=== PATIENT | male | born 1955 | race Caucasian/White ===

== ENCOUNTER 2018-05-07 08:52 | Emergency (ER) | payer OTHER ==
--- NOTE | 2018-05-07 10:01 | UC ---
Eye Complaint HPI - HPI Summary HPI Summary: The patient is a 62-year-old male with a 2 day history of redness in his left eye. No pain or visual problems are noted. He has no discharge from his eye. There is no itchiness of the eye. He states that he had been doing some heavy lifting around the house before he noted this. - History of Current Complaint Chief Complaint: UCEye Stated Complaint: EYE ISSUE Time Seen by Provider: 05/07/18 09:56 Hx Obtained From: Patient Onset/Duration: Gradual Onset, Lasting Days Timing: Constant Severity Initially: Mild Severity Currently: Mild Pain Intensity: 0 Pain Scale Used: 0-10 Numeric Location of Injury: Conjunctiva Alleviating Factor(s): Nothing Associated Signs And Symptoms: Positive: Negative - Allergies/Home Medications Allergies/Adverse Reactions: Allergies Allergy/AdvReac Type Severity Reaction Status Date / Time No Known Allergies Allergy Verified 05/07/18 09:08 Home Medications: Home Medications NK [No Home Medications Reported] 05/07/18 [History Confirmed 05/07/18] PMH/Surg Hx/FS Hx/Imm Hx Previously Healthy: Yes - Surgical History Surgical History: Yes Surgery Procedure, Year, and Place: hernia - Family History Known Family History: Positive: Cardiac Disease - Social History Alcohol Use: Rare Substance Use Type: None Smoking Status (MU): Never Smoked Tobacco Review of Systems Constitutional: Negative Skin: Negative Eyes: Eye Redness ENT: Negative Respiratory: Negative Cardiovascular: Negative Gastrointestinal: Negative Genitourinary: Negative Motor: Negative Neurovascular: Negative Musculoskeletal: Negative Neurological: Negative Psychological: Negative Is Patient Immunocompromised?: No All Other Systems Reviewed And Are Negative: Yes Physical Exam Triage Information Reviewed: Yes Appearance: Well-Appearing, No Pain Distress, Well-Nourished Vital Signs: Initial Vital Signs Temp 98 F 05/07/18 09:02 Pulse 92 05/07/18 09:02 Resp 16 05/07/18 09:02 BP 151/99 05/07/18 09:02 Pulse Ox 100 05/07/18 09:02 Vital Signs Reviewed: Yes Eyes: Positive: Other: - left subconjunctival hemorrhage/eomi/perrl. fundi benign ENT: Positive: Hearing grossly normal. Negative: Nasal congestion, Nasal drainage, Trismus, Muffled voice, Hoarse voice Neck exam: Normal Neck: Positive: Supple, Nontender Respiratory: Positive: Lungs clear, Normal breath sounds, No respiratory distress, No accessory muscle use Cardiovascular: Positive: RRR Musculoskeletal: Positive: ROM Intact, No Edema Neurological: Positive: Alert Psychological Exam: Normal Skin Exam: Normal Eye Complaint Course/Dx - Differential Dx/Diagnosis Provider Diagnoses: left subcnjunctival hemorrhage Discharge - Sign-Out/Discharge Documenting (check all that apply): Discharge/Admit/Transfer - Discharge Plan Condition: Stable Disposition: HOME Patient Education Materials: Subconjunctival Hemorrhage (ED) Referrals: Glen Mccarthy MD [Primary Care Provider] - If Needed - Billing Disposition and Condition Condition: STABLE Disposition: Home
== END 2018-05-07 10:10 | disposition home or self-care (01) ==
LOC: UCEAST 08:52
DX: H11.32 Conjunctival hemorrhage, left eye (principal)

== ENCOUNTER 2019-02-26 11:40 | Day surgery (SDC) | payer MEDICARE, OTHER ==
[~2019-02-26 11:40] MED LIST: Buffered Lidocaine 1% SYRIN* 1 ML/SYRINGE INTRADERM ONE; Bupivacaine 0.5% W/EPI SDV* 30 ML VIAL ONE; Lactated Ringers 1000 ML Bag* 1,000 ML IV SCH; Lidocaine 1% INJ* 10 MG/ML 30 ML SDV ONE
[2019-02-26] MEDS ORDERED: ceFAZolin 2 GM in NS PREMIX(*) 2 GM/100 ML BAG IVPB ONE (12:27)
[2019-02-26] MEDS ORDERED: Propofol* 500 MG/50 ML BTL ONE (12:51)
[2019-02-26] MEDS ORDERED: fentaNYL* 50 MCG/ML 5 ML VIAL (250 MCG VIAL) ONE (12:52)
[2019-02-26] MEDS ORDERED: Midazolam* 1 MG/ML 2 ML VIAL (2 MG) ONE ×2 (12:52→13:13)
[2019-02-26] MEDS ORDERED: Propofol* 10 MG/ML 20 ML BTL ONE (12:52)
[2019-02-26] MEDS ORDERED: fentaNYL* 50 MCG/ML 2 ML VIAL (100 MCG VIAL) ONE (12:52)
[2019-02-26] MEDS ORDERED: Naloxone* 0.4 MG/ML 1 ML VIAL IV PRN ×2 (13:04→13:14)
[2019-02-26] MEDS ORDERED: fentaNYL* 50 MCG/ML 2 ML VIAL (100 MCG VIAL) IV PRN (13:14)
[2019-02-26] MEDS ORDERED: Acetaminophen TAB* 325 MG PO PRN (13:14)
[2019-02-26] MEDS ORDERED: oxyCODONE TAB* 5 MG TAB PO PRN (13:14)
[2019-02-26] MEDS ORDERED: Ondansetron INJ* 2 MG/ML VIAL IV PRN (13:14)
[2019-02-26] MEDS ORDERED: Ibuprofen TAB* 400 MG PO PRN (13:54)
--- NOTE | 2019-02-26 14:10 | BRIEFOPN ---
Brief Operative Note - Surgery Procedures: PREOP/POSTOP DX: INCARCERATED UMBILICAL HERNIA PROC: OPEN REPAIR OF ABOVE SURG: MECENAS ASSIST: LIZ CAVAZOS ANES: LOCAL/MAC; CHANEL EBL: MIN IVF: CRYST SPEC: 1)CONTENTS OF HERNIA (OMENTUM) 2) HERNIA SAC DRAIN: NONE COMPL: NONE COND: STABLE TO RR. FINDINGS:2.5 CM HERNIA WITH INCARCERATED OMENTUM. REPAIR WITH VENTRALEX MEDIUM CIRCULAR PATCH (6.4 CM)
[2019-02-26] MEDS ORDERED: Ibuprofen TAB* 400 MG ONE (14:25)
[2019-02-26] MEDS ORDERED: oxyCODONE TAB* 5 MG TAB ONE (14:25)
[2019-02-26 14:40] VITALS: BP 142/91
--- NOTE | 2019-02-27 01:50 | OP ---
CC: Glen Mccarthy MD OPERATIVE REPORT: DATE OF OPERATION: 02/26/19 DATE OF : 51 SURGEON: Jaime Henderson MD. SOLVENT MIXER: ASHER Shepherd student. ANESTHESIOLOGIST: Dr. Melendez. ANESTHESIA: Local MAC. PRE-OP DIAGNOSIS: Incarcerated umbilical hernia. POST-OP DIAGNOSIS: Incarcerated umbilical hernia. OPERATIVE PROCEDURE: Open reduction and repair of an incarcerated umbilical hernia with mesh. ESTIMATED BLOOD LOSS: Minimal. IV FLUIDS: Crystalloid. SPECIMENS: 1. Contents of umbilical hernia. 2. Hernia sac. DRAINS: None. COMPLICATIONS: None. COUNTS: Instrument, needle, and sponge counts correct. DESCRIPTION OF PROCEDURE: The patient was brought to the operating room and placed on the table supi ne. Sequential compression devices were placed on both lower extremities. Intravenous sedation was administered. His abdomen was prepped and draped in the usual sterile fashion and he received approp riate intravenous antibiotics. Local anesthetic was infiltrated as a field block in the umbical region and curvilinear infraumbilica l incision was created. Subcutaneous tissues were divided with cautery. The umbilical hernia sac wa s dissected down to the base and the hernia sac was then entered. The sac contained omentum, which w as viable. There was clear straw-colored fluid within the sac as well. The peritoneum of the sac wa s quite thickened. The defect at the hernia measured about 2.5 cm. The contents could not be reduce d and therefore it was decided to resect the omentum. This was achieved by clamping the omentum sequ entially and dividing it and ligating with 2-0 absorbable ties. The specimen was handed off to Patho logy. The remaining omentum was able to be reduced. The remaining sac was excised down to the base and it was handed off as specimen as well. Sac adherent to the umbilical skin was dissected free and submitted as well. Repair was then performed with a Ventralex 6.4 cm patch. The mesh was placed in to the peritoneal cavity and the strap strung up centrally and then the mesh was sutured at the super ior and inferior aspects of the fascia with 0 Ethibond suture. The tails were cut and then the herni a defect was closed transversely with #1 Ethibond in the [id number] fashion. Subsequently, the umbilical stalk was recreated by suturing the dermis down to the fascia with 3- 0 Vicryl. The 3-0 Vi cryl was then used to close the deep dermis of the incision in an interrupted fashion and the skin ed ges were approximated with kacy. Compression dressing was applied. The patient tolerated the proc edure well and was awakened and transferred to Recovery in stable condition. [id number]/[facility] #: [id number]
== END 2019-02-26 14:43 | disposition home or self-care (01) ==
LOC: OR 11:40
PROVIDERS: ATTEND Surgery
DX: K42.0 Umbilical hernia with obstruction, without gangrene (principal); Z85.828 Personal history of other malignant neoplasm of skin
CPT/HCPCS: 88302; 88304; A9270-GY; C1781; J0690; J2250; J2704; J3010

== ENCOUNTER 2024-11-01 11:03 | Inpatient (IN) ==
[2024-11-01] MEDS: Lactated Ringers 1000 ml BAG 1,000 ML IV ONE ×2 (12:37→13:45)
[2024-11-01 12:45] LABS: ABS Basophils 0.1 10^3/uL (0.0-0.1); ABS Lymphocytes 1.9 10^3/uL (1.0-4.8); ABS Monocytes 1.2 10^3/uL (0.0-1.1); ABS Neutrophils 6.5 10^3/uL (1.5-7.6); ABS Nucleated RBC 0.01 10^3/ul; Eosinophil % 0.3 %; Hematocrit 34.3 % (38-53); Hemoglobin 11.1 g/dL (13.2-16.3); Lymphocyte % 19.4 %; Mean Corpuscular Hemoglobin 26.1 pg (27-33); Mean Corpuscular Hgb Conc 32.4 g/dL (31-36); Mean Corpuscular Volume 80.4 fL (80-97); Mean Platelet Volume 8.7 fL (7.5-11.2); Nucleated Red Blood Cells % 0.1 %/100WBC (0.0-0.8); Platelet Count 245 10^3/uL (150-450); Red Blood Count 4.26 10^6/uL (4.06-5.63); White Blood Count 9.8 10^3/uL (3.6-10.2)
[2024-11-01 13:17] LABS: Albumin 2.9 g/dL (3.5-5.7); Albumin/Globulin Ratio 0.9 (1-3); Calcium 8.5 mg/dL (8.6-10.3); Creatinine, Serum 1.09 mg/dL (0.67-1.17); Globulin 3.3 g/dL (2-4); Magnesium 2.5 mg/dL (1.9-2.7); Potassium 3.7 mmol/L (3.5-5.0); Total Bilirubin 1.6 mg/dL (0.2-1.0); Total Protein 6.2 g/dL (6.4-8.9)
[2024-11-01] MEDS ORDERED: Ondansetron ODT 4 mg TAB 4 MG TAB SL PRN (16:10)
[2024-11-01 16:23] LABS: Calcium 7.6 mg/dL (8.6-10.3); Creatinine, Serum 0.77 mg/dL (0.67-1.17); Potassium 3.6 mmol/L (3.5-5.0); eGFR CKD-EPI 96.3 (>60)
[2024-11-01 16:41] LABS: Phosphorus 1.9 mg/dL (2.5-5.0)
[2024-11-01] MEDS: Pantoprazole VIAL 40 MG VIAL IV SCH (18:03)
[2024-11-01] MEDS: Fluconazole 200 MG IVPREMIX 200 MG/100 ML BAG IVPB SCH (18:03)
[2024-11-01] MEDS: D5W 1000 ml BAG 1,000 ML IV SCH (18:03)
[2024-11-01] MEDS: Enoxaparin 30 MG/0.3 ML SYR SUBCUT SCH (20:35)
[2024-11-02] MEDS: D5W 1000 ml BAG 1,000 ML IV SCH ×4 (00:35→22:38)
[2024-11-02 01:43] LABS: % Iron Saturation 12 % (15-55); .Transferrin 122 mg/dL (203-362); ALT 21 U/L (7-52); AST 27 U/L (13-39); Albumin 2.5 g/dL (3.5-5.7); Albumin/Globulin Ratio 0.9 (1-3); Alkaline Phosphatase 100 U/L (35-149); Anion Gap 10 mmol/L (2-16); Blood Urea Nitrogen 15 mg/dL (6-24); CO2 Carbon Dioxide 31 mmol/L (22-32); Calcium 7.6 mg/dL (8.6-10.3); Chloride 112 mmol/L (101-111); Creatinine, Serum 0.95 mg/dL (0.67-1.17); Globulin 2.8 g/dL (2-4); Glucose 143 mg/dL (70-100); Iron < 20 ug/dL (50-212); Magnesium 2.3 mg/dL (1.9-2.7); Phosphorus 3.2 mg/dL (2.5-5.0); Potassium 3.3 mmol/L (3.5-5.0); Sodium 153 mmol/L (135-145); Total Bilirubin 1.2 mg/dL (0.2-1.0); Total Iron Binding Capacity 171 mcg/dL (250-450); Total Protein 5.3 g/dL (6.4-8.9); Unsaturated Iron Binding 151 ug/dL; eGFR CKD-EPI 86.1 (>60)
[2024-11-02 02:05] LABS: ABS Lymphocytes 1.7 10^3/uL (1.0-4.8); ABS Neutrophils 4.7 10^3/uL (1.5-7.6); ABS Nucleated RBC 0.01 10^3/ul; Eosinophil % 0.4 %; Hematocrit 29.7 % (38-53); Hemoglobin 9.5 g/dL (13.2-16.3); Lymphocyte % 22.4 %; Mean Corpuscular Hemoglobin 25.8 pg (27-33); Mean Corpuscular Volume 80.5 fL (80-97); Nucleated Red Blood Cells % 0.1 %/100WBC (0.0-0.8); Platelet Count 217 10^3/uL (150-450); Red Blood Count 3.69 10^6/uL (4.06-5.63); Red Cell Distribution Width 17.2 % (12-17); White Blood Count 7.4 10^3/uL (3.6-10.2)
[2024-11-02 02:08] LABS: Folate > 20.00 ng/mL (5.90-24.80)
[2024-11-02 02:09] LABS: Vitamin B12 766 pg/mL (180-914)
[2024-11-02] MEDS: Potassium Chloride LIQUID 20 MEQ/15 ML LIQUID PO ONE ×2 (02:21→19:46)
[2024-11-02 04:35] LABS: Ferritin 2169.1 ng/mL (24-336)
[2024-11-02 06:23] LABS: Calcium 7.6 mg/dL (8.6-10.3); Creatinine, Serum 0.9 mg/dL (0.67-1.17); Potassium 3.5 mmol/L (3.5-5.0); eGFR CKD-EPI 91.9 (>60)
[2024-11-02 10:38] LABS: Calcium 7.5 mg/dL (8.6-10.3); Creatinine, Serum 0.88 mg/dL (0.67-1.17); Potassium 3.4 mmol/L (3.5-5.0); eGFR CKD-EPI 92.5 (>60)
[2024-11-02 21:28] LABS: Calcium 7.3 mg/dL (8.6-10.3); Creatinine, Serum 0.89 mg/dL (0.67-1.17); Potassium 3.4 mmol/L (3.5-5.0); eGFR CKD-EPI 92.2 (>60)
[2024-11-03 06:28] LABS: Calcium 7.4 mg/dL (8.6-10.3); Creatinine, Serum 0.9 mg/dL (0.67-1.17); Potassium 3.4 mmol/L (3.5-5.0); eGFR CKD-EPI 91.9 (>60)
[2024-11-03] MEDS ORDERED: KCL 10 MEQ/50 ML IVPREMIX 10 MEQ/50 ML BAG IV SCH (06:51)
[2024-11-03] MEDS: Potassium Chlor 20 meq TAB.ER PO ONE (07:13)
[2024-11-03] MEDS: KCL 10 MEQ/50 ML IVPREMIX 10 MEQ/50 ML BAG IV SCH (07:26)
[2024-11-03] MEDS: D5W 1000 ml BAG 1,000 ML IV SCH (11:26)
[2024-11-03] MEDS: Acetaminophen IV 1 GM/100ML 1,000 MG/100 ML BAG IV PRN (12:35)
[2024-11-03] MEDS ORDERED: Enoxaparin 30 MG/0.3 ML SYR SUBCUT SCH (14:00)
[2024-11-03 16:09] LABS: Calcium 7.4 mg/dL (8.6-10.3); Creatinine, Serum 0.94 mg/dL (0.67-1.17); Potassium 3.5 mmol/L (3.5-5.0); eGFR CKD-EPI 87.2 (>60)
[2024-11-03] MEDS: Potassium Chloride LIQUID 20 MEQ/15 ML LIQUID PO ONE (18:40)
[2024-11-03] MEDS: Enoxaparin 40 MG/0.4 ML SYR SUBCUT ONE (19:29)
[2024-11-04 07:00] LABS: ABS Lymphocytes 1.5 10^3/uL (1.0-4.8); ABS Monocytes 1.1 10^3/uL (0.0-1.1); ABS Nucleated RBC 0.01 10^3/ul; Eosinophil % 0.7 %; Hemoglobin 9.5 g/dL (13.2-16.3); Lymphocyte % 26.2 %; Mean Corpuscular Hgb Conc 32.9 g/dL (31-36); Mean Corpuscular Volume 79.1 fL (80-97); Mean Platelet Volume 8.9 fL (7.5-11.2); Nucleated Red Blood Cells % 0.2 %/100WBC (0.0-0.8); Platelet Count 219 10^3/uL (150-450); Red Blood Count 3.66 10^6/uL (4.06-5.63); Red Cell Distribution Width 16.7 % (12-17); White Blood Count 5.6 10^3/uL (3.6-10.2)
[2024-11-04] MEDS ORDERED: Enoxaparin 40 MG/0.4 ML SYR SUBCUT SCH (09:00)
[2024-11-04 09:06] LABS: Calcium 7.1 mg/dL (8.6-10.3); Creatinine, Serum 0.81 mg/dL (0.67-1.17); Magnesium 1.9 mg/dL (1.9-2.7); Potassium 3.5 mmol/L (3.5-5.0); eGFR CKD-EPI 94.9 (>60)
[2024-11-04] MEDS: D5W 1000 ml BAG 1,000 ML IV SCH (11:21)
[2024-11-04] MEDS: Enoxaparin 40 MG/0.4 ML SYR SUBCUT SCH (20:37)
[2024-11-05 05:47] LABS: Hematocrit 28.8 % (38-53); Hemoglobin 9.6 g/dL (13.2-16.3); Mean Corpuscular Hgb Conc 33.1 g/dL (31-36); Mean Corpuscular Volume 78.6 fL (80-97); Mean Platelet Volume 8.8 fL (7.5-11.2); Platelet Count 265 10^3/uL (150-450); Red Blood Count 3.67 10^6/uL (4.06-5.63); Red Cell Distribution Width 17.1 % (12-17)
[2024-11-05 06:19] LABS: Calcium 7.1 mg/dL (8.6-10.3); Creatinine, Serum 0.84 mg/dL (0.67-1.17); Magnesium 1.9 mg/dL (1.9-2.7); Potassium 3.5 mmol/L (3.5-5.0); eGFR CKD-EPI 93.8 (>60)
[2024-11-05 06:42] LABS: ABS Basophils 0.1 10^3/uL (0.0-0.1); ABS Lymphocytes 1.5 10^3/uL (1.0-4.8); ABS Monocytes 1.2 10^3/uL (0.0-1.1); ABS Neutrophils 3.2 10^3/uL (1.5-7.6); ABS Nucleated RBC 0.01 10^3/ul; Anisocytosis 1+; Eosinophil % 0.5 %; Lymphocyte % 25.4 %; Microcytosis 1+; Nucleated Red Blood Cells % 0.2 %/100WBC (0.0-0.8)
[2024-11-05] MEDS: Senna TAB 8.6 mg TAB PO PRN (13:20)
[2024-11-05] MEDS: Polyethylene Glycol 3350 17 GM PACKET PO PRN (13:23)
[2024-11-06 06:51] LABS: Albumin 2.2 g/dL (3.5-5.7); Albumin/Globulin Ratio 0.7 (1-3); Calcium 7.3 mg/dL (8.6-10.3); Creatinine, Serum 0.78 mg/dL (0.67-1.17); Potassium 3.6 mmol/L (3.5-5.0); Total Protein 5.2 g/dL (6.4-8.9); eGFR CKD-EPI 95.9 (>60)
[2024-11-06 07:19] LABS: Hematocrit 28.7 % (38-53); Hemoglobin 9.6 g/dL (13.2-16.3); Mean Corpuscular Hemoglobin 26.2 pg (27-33); Mean Corpuscular Hgb Conc 33.3 g/dL (31-36); Mean Corpuscular Volume 78.7 fL (80-97); Mean Platelet Volume 9.3 fL (7.5-11.2); Platelet Count 311 10^3/uL (150-450); Red Blood Count 3.65 10^6/uL (4.06-5.63); Red Cell Distribution Width 16.9 % (12-17); White Blood Count 6.4 10^3/uL (3.6-10.2)
[2024-11-06 07:21] LABS: Magnesium 1.9 mg/dL (1.9-2.7)
[2024-11-06 08:41] LABS: ABS Lymphocytes 1.4 10^3/uL (1.0-4.8); ABS Monocytes 1.3 10^3/uL (0.0-1.1); ABS Neutrophils 3.7 10^3/uL (1.5-7.6); ABS Nucleated RBC 0.01 10^3/ul; Eosinophil % 0.5 %; Lymphocyte % 21.4 %; Microcytosis 1+; Nucleated Red Blood Cells % 0.1 %/100WBC (0.0-0.8)
[2024-11-06] MEDS ORDERED: Polyethylene Glycol 3350 17 GM PACKET PO PRN (09:50)
[2024-11-06] MEDS: Enoxaparin 40 MG/0.4 ML SYR SUBCUT ONE (17:36)
[2024-11-07 06:42] LABS: Hematocrit 28.8 % (38-53); Hemoglobin 9.4 g/dL (13.2-16.3); Mean Corpuscular Hemoglobin 25.8 pg (27-33); Mean Corpuscular Hgb Conc 32.8 g/dL (31-36); Mean Corpuscular Volume 78.7 fL (80-97); Mean Platelet Volume 8.6 fL (7.5-11.2); Platelet Count 372 10^3/uL (150-450); Red Blood Count 3.66 10^6/uL (4.06-5.63); Red Cell Distribution Width 17.1 % (12-17); White Blood Count 7.6 10^3/uL (3.6-10.2)
[2024-11-07 07:27] LABS: Calcium 7.1 mg/dL (8.6-10.3); Creatinine, Serum 0.85 mg/dL (0.67-1.17); eGFR CKD-EPI 93.5 (>60)
[2024-11-07 08:01] LABS: Albumin 2.2 g/dL (3.5-5.7); Albumin/Globulin Ratio 0.7 (1-3); Total Bilirubin 0.9 mg/dL (0.2-1.0); Total Protein 5.2 g/dL (6.4-8.9)
[2024-11-07 08:23] LABS: ABS Basophils 0.1 10^3/uL (0.0-0.1); ABS Lymphocytes 1.7 10^3/uL (1.0-4.8); ABS Monocytes 1.5 10^3/uL (0.0-1.1); ABS Neutrophils 4.3 10^3/uL (1.5-7.6); ABS Nucleated RBC 0.01 10^3/ul; Eosinophil % 0.2 %; Lymphocyte % 22.7 %; Nucleated Red Blood Cells % 0.1 %/100WBC (0.0-0.8)
[2024-11-07] MEDS ORDERED: fentaNYL 250 mcg/5 ml 50 MCG/ML 5 ml VIAL (250 MCG) ONE (09:00)
[2024-11-07] MEDS ORDERED: Propofol 10 MG/ML 20 ML BTL ONE (09:00)
[2024-11-07] MEDS ORDERED: Lidocaine 2% PF 5 ML VIAL ONE (09:00)
[2024-11-07] MEDS ORDERED: Midazolam 2 mg/2 ml VIAL 1 mg/ml 2 ml VIAL (2 mg) ONE (09:00)
[2024-11-07] MEDS ORDERED: fentaNYL 100 mcg/2 ml 50 MCG/ML VIAL ONE (09:46)
[2024-11-07 15:27] LABS: Body Fluid Appearance Cloudy; Body Fluid Color Yellow; Body Fluid Source Peritonial Fluid
[2024-11-07 15:40] LABS: Body Fluid Total Nucleated 318 /mcL
[2024-11-07 16:02] LABS: Body Fluid Mono 17 %; Body Fluid Other Cells 2; Body Fluid Total Cells Counted 200
[2024-11-07] MEDS: TPN 24 HR with Dextrose 50% Water 500 ML, Amino Acid Infusion 10% 850 ML, Sterile Water... CENTR SCH (17:21)
[2024-11-08 06:22] LABS: Hematocrit 29.7 % (38-53); Hemoglobin 9.7 g/dL (13.2-16.3); Mean Corpuscular Hemoglobin 25.7 pg (27-33); Mean Corpuscular Hgb Conc 32.7 g/dL (31-36); Mean Corpuscular Volume 78.6 fL (80-97); Mean Platelet Volume 8.2 fL (7.5-11.2); Platelet Count 404 10^3/uL (150-450); Red Blood Count 3.78 10^6/uL (4.06-5.63); White Blood Count 9.4 10^3/uL (3.6-10.2)
[2024-11-08 06:46] LABS: Albumin 2.2 g/dL (3.5-5.7); Albumin/Globulin Ratio 0.7 (1-3); Calcium 7.4 mg/dL (8.6-10.3); Creatinine, Serum 0.73 mg/dL (0.67-1.17); Globulin 3.1 g/dL (2-4); Phosphorus 2.3 mg/dL (2.5-5.0); Potassium 3.8 mmol/L (3.5-5.0); Total Bilirubin 0.8 mg/dL (0.2-1.0); Total Protein 5.3 g/dL (6.4-8.9); eGFR CKD-EPI 97.9 (>60)
[2024-11-08 08:18] LABS: ABS Basophils 0.1 10^3/uL (0.0-0.1); ABS Lymphocytes 1.6 10^3/uL (1.0-4.8); ABS Monocytes 1.5 10^3/uL (0.0-1.1); ABS Neutrophils 6.1 10^3/uL (1.5-7.6); ABS Nucleated RBC 0.04 10^3/ul; Eosinophil % 0.2 %; Lymphocyte % 17.3 %; Nucleated Red Blood Cells % 0.4 %/100WBC (0.0-0.8)
[2024-11-08] MEDS: TPN 24 HR with Dextrose 50% Water 500 ML, Amino Acid Infusion 10% 850 ML, Sterile Water... CENTR SCH (11:17)
[2024-11-08] MEDS: WATER TPN SCH (17:13)
[2024-11-08] MEDS: AMINO ACID INFUSION TPN SCH (17:13)
[2024-11-08] MEDS: DEXTROSE TPN SCH (17:13)
[2024-11-08] MEDS: TPN TPN SCH (17:13)
[2024-11-08] MEDS: [UNRECOGNIZED DRUG - OTHER] TPN SCH (17:13)
[2024-11-08] MEDS: TPN CENTR SCH (17:15)
[2024-11-08] MEDS: AMINO ACID INFUSION CENTR SCH (17:15)
[2024-11-08] MEDS: WATER CENTR SCH (17:15)
[2024-11-08] MEDS: DEXTROSE CENTR SCH (17:15)
[2024-11-08] MEDS: [UNRECOGNIZED DRUG - OTHER] CENTR SCH (17:15)
[2024-11-08] MEDS ORDERED: Cefepime 1 GM in Dextrose 1 GM/50 ML BAG IV SCH (18:00)
[2024-11-08] MEDS: Enoxaparin 40 MG/0.4 ML SYR SUBCUT SCH (20:42)
[2024-11-09 08:48] LABS: Albumin 2.2 g/dL (3.5-5.7); Albumin/Globulin Ratio 0.7 (1-3); Calcium 7.6 mg/dL (8.6-10.3); Creatinine, Serum 0.55 mg/dL (0.67-1.17); Total Bilirubin 0.7 mg/dL (0.2-1.0); Total Protein 5.2 g/dL (6.4-8.9); eGFR CKD-EPI 106.6 (>60)
[2024-11-09] MEDS: WATER TPN SCH (17:15)
[2024-11-09] MEDS: TPN TPN SCH (17:15)
[2024-11-09] MEDS: [UNRECOGNIZED DRUG - OTHER] TPN SCH (17:15)
[2024-11-09] MEDS: DEXTROSE TPN SCH (17:15)
[2024-11-09] MEDS: AMINO ACID INFUSION TPN SCH (17:15)
[2024-11-10 06:02] LABS: Hematocrit 30.2 % (38-53); Hemoglobin 9.8 g/dL (13.2-16.3); Mean Corpuscular Hemoglobin 25.6 pg (27-33); Mean Corpuscular Hgb Conc 32.6 g/dL (31-36); Mean Corpuscular Volume 78.8 fL (80-97); Mean Platelet Volume 8.1 fL (7.5-11.2); Platelet Count 405 10^3/uL (150-450); Red Blood Count 3.83 10^6/uL (4.06-5.63); Red Cell Distribution Width 17.3 % (12-17); White Blood Count 13.7 10^3/uL (3.6-10.2)
[2024-11-10 06:41] LABS: Albumin 2.2 g/dL (3.5-5.7); Albumin/Globulin Ratio 0.7 (1-3); Calcium 7.7 mg/dL (8.6-10.3); Creatinine, Serum 0.55 mg/dL (0.67-1.17); Globulin 3.2 g/dL (2-4); Magnesium 1.9 mg/dL (1.9-2.7); Phosphorus 3.1 mg/dL (2.5-5.0); Potassium 4.4 mmol/L (3.5-5.0); Total Bilirubin 0.6 mg/dL (0.2-1.0); Total Protein 5.4 g/dL (6.4-8.9); eGFR CKD-EPI 106.6 (>60)
[2024-11-10 08:13] LABS: ABS Basophils 0.1 10^3/uL (0.0-0.1); ABS Lymphocytes 2.2 10^3/uL (1.0-4.8); ABS Monocytes 1.5 10^3/uL (0.0-1.1); ABS Neutrophils 9.9 10^3/uL (1.5-7.6); ABS Nucleated RBC 0.03 10^3/ul; Eosinophil % 0.3 %; Lymphocyte % 16.3 %; Nucleated Red Blood Cells % 0.2 %/100WBC (0.0-0.8); Polychromasia 1+
[2024-11-10 10:16] LABS: C Reactive Protein 203.44 mg/L (<8.01)
[2024-11-10 11:33] LABS: Lactate Dehydrogenase, BF 249 U/L
[2024-11-10 12:56] LABS: Glucose, BF 59 mg/dL
[2024-11-10 13:00] LABS: Albumin, BF 1.7 g/dL; Fluid Type, Albumin Peritoneal Fluid
[2024-11-10 13:01] LABS: Fluid Type, Protein, Total Peritoneal Fluid; Total Protein, BF 3.3 g/dL
[2024-11-10 13:11] LABS: Urine Appearance Clear; Urine Bilirubin Negative (Negative); Urine Blood 1+ (Negative); Urine Color Yellow; Urine Glucose Negative (Negative); Urine Ketones Negative (Negative); Urine Nitrite Negative (Negative); Urine Protein Trace (Negative); Urine Specific Gravity 1.025 (1.002-1.030); Urine Urobilinogen Negative (Negative)
[2024-11-10 13:13] LABS: Urine Bacteria Absent /HPF (Absent); Urine Red Blood Cell 1+(3-5/hpf) /HPF (0-Trace); Urine White Blood Cell Trace(0-5/hpf) /HPF (0-Trace)
[2024-11-10] MEDS ORDERED: Morphine 2 MG/ML SYRINGE IV PRN (17:40)
[2024-11-11 06:08] LABS: Hematocrit 28.6 % (38-53); Hemoglobin 9.2 g/dL (13.2-16.3); Mean Corpuscular Hemoglobin 25.4 pg (27-33); Mean Corpuscular Hgb Conc 32.3 g/dL (31-36); Mean Corpuscular Volume 78.8 fL (80-97); Mean Platelet Volume 7.9 fL (7.5-11.2); Platelet Count 369 10^3/uL (150-450); Red Blood Count 3.63 10^6/uL (4.06-5.63); Red Cell Distribution Width 17.3 % (12-17)
[2024-11-11 06:32] LABS: Albumin 2.2 g/dL (3.5-5.7); Albumin/Globulin Ratio 0.7 (1-3); Calcium 7.7 mg/dL (8.6-10.3); Creatinine, Serum 0.48 mg/dL (0.67-1.17); Magnesium 1.9 mg/dL (1.9-2.7); Phosphorus 3.5 mg/dL (2.5-5.0); Potassium 4.4 mmol/L (3.5-5.0); Total Bilirubin 0.6 mg/dL (0.2-1.0); Total Protein 5.2 g/dL (6.4-8.9); eGFR CKD-EPI 111.1 (>60)
[2024-11-11 07:15] LABS: ABS Basophils 0.1 10^3/uL (0.0-0.1); ABS Lymphocytes 2.3 10^3/uL (1.0-4.8); ABS Monocytes 1.5 10^3/uL (0.0-1.1); ABS Neutrophils 10.1 10^3/uL (1.5-7.6); ABS Nucleated RBC 0.01 10^3/ul; Anisocytosis 1+; Eosinophil % 0.2 %; Lymphocyte % 16.2 %; Microcytosis 1+; Nucleated Red Blood Cells % 0.1 %/100WBC (0.0-0.8)
[2024-11-11 09:27] VITALS: BP 117/64
[2024-11-11] MEDS: Sodium Phosphate ADULT ENEMA 133 ML BTL PR ONE (12:45)
[2024-11-11] MEDS ORDERED: Morphine ORAL CONCENTRATE 5 MG/0.25 ML ORAL.SYRIN SL PRN (13:12)
[2024-11-11] MEDS: CMC:Saliva Substitute (NF) 1 SPRAY BTL MT SCH (14:41)
[2024-11-11] MEDS ORDERED: Saline NASAL SPRAY 0.65% BTL BOTH NARES PRN (15:30)
[2024-11-11] MEDS ORDERED: Lorazepam PYXIS KEY PRN (18:50)
[2024-11-11] MEDS ORDERED: Acetaminophen IV 1 GM/100ML 1,000 MG/100 ML BAG IV PRN (19:41)
[2024-11-12] MEDS: Morphine 2 MG/ML SYRINGE IV PRN (10:19)
[2024-11-12] MEDS: Polyethylene Glycol 3350 17 GM PACKET PO SCH (11:14)
[2024-11-12] MEDS: LORazepam 2 mg VIAL 1 ml IV PUSH PRN (23:16)
== END 2024-11-13 13:35 | disposition hospice, home (50) | DRG 640 ==
LOC: ED 11:03 → EDHOLD 11:03 → SUATTDRO 14:33 → MED 15:40 → SUATTDRO 11-02 12:00
PROVIDERS: ADMIT Student in an Organized Health Care Education/Training Program; ATTEND Internal Medicine